=== PATIENT | male | born 1940 | race Caucasian/White ===

== ENCOUNTER 2023-06-30 06:23 | Day surgery (SDC) | payer MEDICARE, BC, SELFPAY ==
[2023-06-30] VITALS (26 sets, daily range): BP systolic 92–136; BP diastolic 64–94; PULSE 45–94; RESP 12–20; TEMP 35.8–36.5; O2SAT 97–100; BMI 30.7
[2023-06-30] MEDS: LACTATED RINGERS 1000 ML 1,000 ML 100 ML IV ×2 (06:35→09:11)
[2023-06-30] MEDS: ACETAMINOPHEN 500 MG TABLET 1000 MG PO ×3 (06:57→19:11)
[2023-06-30] MEDS: CELECOXIB 200 MG CAPSULE PO (06:57)
[2023-06-30] MEDS: SODIUM CHLORIDE 0.9 % (FLUSH) 10 ML SYRINGE IVF (06:58)
[2023-06-30] MEDS: OXYCODONE (CR) 10 MG TAB.ER.12H PO (06:58)
--- NOTE | 2023-06-30 07:22 | SUR.PREOP ---
TIME?OUT:?0725 PT/RN/MDA?VERIFICATION?OF?SURGICAL?SITE Left Knee,?PROCEDURE Adductor Canal Block,?AND?CONSENT OBTAINED?PRIOR?TO?INVASIVE?PROCEDURE.
[2023-06-30] MEDS: MIDAZOLAM HCL 1 MG/ML inj IVP (07:26)
[2023-06-30] MEDS: fentaNYL 100 MCG/2 ML inj IVP (07:26)
[2023-06-30] MEDS: CEFAZOLIN 2 GM INJ IVP (08:35)
[2023-06-30] MEDS: TRANEXAMIC ACID 100 MG/ML INJ 1000 MG IV (08:35)
--- NOTE | 2023-06-30 09:42 | CRLHL7_ITS ---
For Patients: As a result of the Cures Act, medical imaging exams and procedure reports are released immediately into your electronic medical record. You may view this report before your referring provider. If you have questions, please contact your health care provider. Indication: Postop TKA Technique: Two views left knee Findings/Impression: Hardware from a left total knee arthroplasty is in satisfactory position. Bone alignment is normal. No sign of acute fracture. Postop changes are within normal limits. Dictated by Evelio Menchaca MD @ 06/30/2023 11:11:01 AM (Electronically Signed)
--- NOTE | 2023-06-30 09:43 | P.ORPRC_ITS ---
Procedure Note Date of procedure: 06/30/23 Procedure: PREOPERATIVE DIAGNOSIS: Left knee osteoarthritis POSTOPERATIVE DIAGNOSIS: Left knee osteoarthritis NAME OF OPERATION: Left total knee arthroplasty SURGEON: Ventura Heller MD DRY HOUSE TENDER: Cheryle Barron PA-C ANESTHESIA: Spinal ESTIMATED BLOOD LOSS: 0 mL COMPLICATIONS: None SPECIMENS: None DRAINS: None PREOPERATIVE ANTIBIOTICS: Ancef 2 grams IMPLANTS: 1. J&J Attune # 10 posterior stabilized femur 2. # 10 fixed-bearing tibia 3. # 10 posterior stabilized, 5 mm fixed-bearing polyethylene 4. 41 patella INDICATIONS: The patient is a 82-year-old with a longstanding history of severe, unrelenting left knee pain secondary to end-stage (grade IV) left knee osteoarthritis. Despite appropriate nonoperative management, including activity modification, anti-inflammatories, cqxz-[id number]-bllyeqy pain medication, bracing, physical therapy, and injections they continue to have pain and disability. Operative intervention was offered. The risks, benefits and expected outcomes were discussed in detail. These included but were not limited to: Infection, bleeding, injury to blood vessel or nerve, venous thromboembolism. All questions were answered to their satisfaction. Use of an personalized living assistant was necessary throughout the case for patient positioning and safety, soft tissue retraction, and closure. PROCEDURE: Spinal anesthesia was administered. The patient was placed supine on the operating table. The personalized living assistant made sure the patient was positioned appropriately. The lower extremity was prepped and draped in the usual sterile fashion. The limb was exsanguinated with the Dani bandage. The pneumatic to urniquet was inflated to 300 mmHg. A standard anterior incision was made with the knee in flexion. Subcutaneous dissection was sharply taken through fascial layer #1. Full-thickness medial and lateral flaps were elevated. The personalized living assistant retracted the soft tissues and protected them throughout the case. A standard medial parapatellar approach was made. The patella was everted. The infrapatellar fat pad was preserved. The menisci and cruciate ligaments were sharply d?brided. Marginal osteophytes were d?brided with the rongeur. The drill was used to penetrate the femoral canal. The canal was aspirated and irrigated with pulse lavage. The intramedullary femoral guide was placed for a 5-degree valgus cut, removing 10 mm off the distal femur. The saw was used to make the cut. Whitesides line and the trans epicondylar axis were marked. The femoral sizing guide was pinned onto the distal femur. Three degrees of external rotation nicely parallels the transepicondylar axis. Pins were placed for posterior referencing. The four-in-one cutting guide was pinned onto the distal femur. The anterior, posterior, and chamfer cuts were made. The personalized living assistant protected the collateral ligaments. The box cutting guide was pinned. The box cuts were made. The boxed trial was placed and was an excellent fit. Drill holes for the lugs were made. Attention was then turned to the proximal tibia. The extramedullary tibial guide was placed for a neutral varus/valgus cut with 5 degrees of posterior slope, removing 2 mm based off the medial tibial surface. The personalized living assistant protected the collateral ligaments and the neurovascular bundle. The saw was used to make the cut. Trial components were placed. The knee was nicely balanced in both flexion and extension. The trial components were removed. The tray was placed in appropriate rotation, parallel to our tibial cutting pins. It was pinned by the personalized living assistant and the drill and the punch were used. The tray was removed. The punch was used again. We placed a bone plug in the femoral canal. Attention was then turned to the patella. [place] patellar thickness was 27 mm. The lobster claw resection guide was used with the 9.5 mm bryant. The saw was used to make the cut. Drill holes were made by the personalized living assistant. The trial was placed and was an excellent fit. Cancellous surfaces were irrigated with pulse lavage and thoroughly dried by the personalized living assistant. We cemented the tibial component, then the femoral component. We impacted the 5 mm polyethylene onto the tibial tray. The knee was brought into full extension. We then cemented the patellar component. Excessive cement was removed. The cement was allowed to harden. The knee was taken through a range of motion and was found to be nicely balanced in both flexion and extension. The patella tracks centrally. The personalized living assistant did a three minute dilute Betadine solution soak. The personalized living assistant irrigated the wound with 3 liters of normal saline via pulse lavage. The ass istant reapproximated the extensor mechanism with #1 Vicryl in an interrupted [id number] fashion. The personalized living assistant then ran the extensor mechanism with a #1 PDO Stratafix. The personalized living assistant closed the subcutaneous tissues with a 3-0 Stratafix and the skin with a running 3-0 Stratafix in a subcuticular fashion. Glue was used to seal the skin. The personalized living assistant placed a dry dressing, KEIRA stocking, and Polar Care. Sponge and needle counts were correct x2. The patient tolerated the procedure well. There were no apparent complications. They were carefully transferred to the hospital bed and taken to the postanesthesia care unit in satisfactory condition. PLAN: The patient will be mobilized with physical therapy. Aspirin will be used for DVT prophylaxis. They will be discharged to home once medically appropriate.
--- NOTE | 2023-06-30 10:38 | W.ANESCHARGE ---
Anesthesia Charges Start Date/Time Anesthesia Start Date: 06/30/23 Anesthesia Start Time: 08:14 Stop Date/Time Anesthesia Stop Date: 06/30/23 Anesthesia Stop Time: 10:39 Summary Extremes of Age - Over 70 or under 1: [employer]
--- NOTE | 2023-06-30 11:16 | SUR.PHASEI ---
patient met discharge criteria per anesthesia
--- NOTE | 2023-06-30 11:38 | W.ANESCHARGE ---
Anesthesia Charges Start Date/Time Anesthesia Start Date: 06/30/23 Anesthesia Start Time: 08:14 Stop Date/Time Anesthesia Stop Date: 06/30/23 Anesthesia Stop Time: 10:39 Summary Extremes of Age - Over 70 or under 1: MDA
--- NOTE | 2023-06-30 11:39 | W.PM.NB ---
Nerve Block Nerve Block Time Seen by Provider: 07:33 Date Seen: 06/30/23 Type of block requested by surgeon for post-operative analgesia: adductor canal Side: left Time out performed: Yes Verification of patient name: Yes Verification of date of : Yes Site marking: site marked Name of person performing procedure: Rigoberto Assistants, if any: Coty Continuous monitoring Was continuous monitoring of O2 sat, B/P, satellite project site monitor, recorded every 15 minutes?: Yes Procedure Checklist: sterile prep, needles and gloves Ultrasound guided. Images saved: Yes Medications given in 5ml increments after negative aspiration: Ropivicaine %: 0.5 mL: 20 Needle gauge: 20 Decadron (mg): 10 Precedex (mcg): 25 Patient tolerated procedure well: Yes Additional comments: Needle noted adjacent to nerve Block Charges Block Charge (with Pro Fee): Femoral Nerve Use of Ultrasound Machine for Block: Yes- US Guidance/pain block
--- NOTE | 2023-06-30 11:40 | W.PM.NB ---
Nerve Block Nerve Block Time Seen by Provider: 07:33 Date Seen: 06/30/23 Type of block requested by surgeon for post-operative analgesia: geniculars Side: left Time out performed: Yes Verification of patient name: Yes Verification of date of : Yes Site marking: site marked Name of person performing procedure: Rigoberto Assistants, if any: Coty Continuous monitoring Was continuous monitoring of O2 sat, B/P, compliance monitor, recorded every 15 minutes?: Yes Procedure Checklist: sterile prep, needles and gloves Medications given in 5ml increments after negative aspiration: Ropivicaine %: 0.5 mL: 9 Needle gauge: 25 Patient tolerated procedure well: Yes Block Charges Block Charge (with Pro Fee): Genicular Nerve Block Use of Ultrasound Machine for Block: No
--- NOTE | 2023-06-30 14:27 | P.IMCN_ITS ---
Date of Consult Patient: Other Consult date: 06/30/23 Requesting Physician: Orthopedics Primary Care Provider: Nasir Valentino PA-C Consult Narrative Reason for consult: Narrative: HOSPITALIST CONSULT Procedure: Left total knee arthroplasty SURGEON: Ventura Heller MD UPPER CUTTER OUT: Cheryle Barron PA-C ANESTHESIA: Spinal ESTIMATED BLOOD LOSS: 0 mL COMPLICATIONS: None SPECIMENS: None DRAINS: None The hospital medicine team was asked by the orthopedic surgery team to manage the patient's hx of BPH, advanced age, Raynaud's disease. There have been no perioperative complications. Updated and reviewed the active medical problems, past medical history, past surgical history, social history, allergies and medications in our electronic EMR. From his PCP: HISTORY OF PRESENT ILLNESS Crescencio presents today for preop history and physical prior to his upcoming left knee surgery. I did his preop about a month ago and everything was good to go but he developed an infection in his tooth. Since then he has had his tooth pulled and he feels great he is excited about getting his knee surgery done because his pain persists. He is able to walk two blocks without chest pain or shortness of breath but would be limited by knee pain. - No concerns on 06/30. Patient is chewing, eating and swallowing without difficulty. PHYSICAL EXAM: CODE STATUS: FULL CODE CONSTITUTIONAL: Conversive, good historian. A/O. Knows setting and context. VITAL SIGNS: 106/81. Pulse 63. Respiration 14. Afebrile. 99% on room air. HEENT: Normocephalic, atraumatic. PERRL, EOMI, conjunctivae pink, no scleral icterus. Ears and nose externally normal. Pharynx normal. NECK: No JVD. No carotid bruit, no thyromegaly, no adenopathy. CHEST: Clear to auscultation bilaterally HEART: S1 and S2 normal. ABDOMEN: Flat, soft, nontender. Normal bowel sounds. Moderately obese. EXTREMITIES: No edema. MUSCULOSKELETAL: Left knee has a postsurgical dressing. Continuous icing in place. No obvious footdrop. NEURO: Cranial nerves intact. Mentation normal. Normal affect. SKIN: No rashes, petechiae, concerning changes PSYCHIATRIC: Mentation normal. INVESTIGATIONS: EMR Reviewed; Pre-OP Reviewed DISPOSITION: DVT: Agree with Ortho team decision GI: PO intake PFSH PFSH Medical History (Updated 06/30/23 @ 15:10 by Malinda Bowling MD) BPH (benign prostatic hyperplasia) ?N40.0 - Benign prostatic hyperplasia without lower urinary tract symptoms (ICD-10) Raynauds disease ?I73.00 - Raynaud's syndrome without gangrene (ICD-10) Rosacea ?L71.9 - Rosacea, unspecified (ICD-10) Arthritis ?M19.90 - Unspecified osteoarthritis, unspecified site (ICD-10) Surgical History (Updated 06/30/23 @ 15:09 by Malinda Bowling MD) History of total knee arthroplasty ?Z96.659 - Presence of unspecified artificial knee joint (ICD-10) H/O vasectomy ?Z98.52 - Vasectomy status (ICD-10) History of tonsillectomy ?Z90.89 - Acquired absence of other organs (ICD-10) H/O endoscopic sinus surgery ?Z98.890 - Other specified postprocedural states (ICD-10) History of ethmoidectomy ?Z98.890 - Other specified postprocedural states (ICD-10) S/P right knee arthroscopy (~2001) ?Z98.890 - Other specified postprocedural states (ICD-10) 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) ?Z96.651 - Presence of right artificial knee joint (ICD-10) History of colon resection ?Z90.49 - Acquired absence of other specified parts of digestive tract (ICD- 10) Hx of appendectomy ?Z90.49 - Acquired absence of other specified parts of digestive tract (ICD- 10) Family History Mother Sepsis Social History (Reviewed 04/01/23 @ 08:29 by Gabriella Bess ~ [facility], [facility]) What is your current living situation?: I presently have a place to live Problems where you live: no known problems In the past 12 months, utilities in danger of being shut off: no In past 12 months, lack of transportation kept you from medical appts, meetings, work, or getting things needed for daily living: no In the past 12 mos, have been you worried that your food would run out before you had money to buy more?: never true In the past 12 mos, the food you bought just didn't last and you didn't have money to buy more?: never true Smoking Status: Former smoker Do you use any of these nicotine containing products: None Second hand tobacco smoke exposure: No How often do you have a drink containing alcohol: 4 or more times a week Alcohol type: hard liquor How many standard drinks containing alcohol do you have on a typical day: 1 or 2 How often do you have six or more drinks on one occasion: Never AUDIT-C Alcohol total score: 4 Non-prescribed substance use: denies use How often does anyone, including family, friends and others, physically hurt you : never How often does anyone, including family, friends and others, insult or talk down to you: never How often does anyone, including family, friends and others, threaten you with harm: never How often does anyone, including family, friends and others, scream or curse at you: never service: No Meds Home Medications and Allergies Home Medications Medication Instructions Recorded Confirmed Type nifedipine 60 mg tablet,extended 60 mg PO DAILY 04/01/23 06/30/23 History release tamsulosin 0.4 mg capsule 0.8 mg PO DAILY 04/01/23 06/30/23 History metronidazole 0.75 % lotion 1 applic topical DAILY PRN 06/30/23 06/30/23 History Allergies Allergy/AdvReac Type Severity Reaction Status Date / Time No Known Drug Allergies Allergy Verified 06/30/23 06:48 Exam Const: Vital Signs, click to edit/add: Vital Signs - 24 hr 06/30/23 07:10 06/30/23 07:25 06/30/23 07:30 Temperature 97.4 F L Pulse Rate 61 58 L 60 Respiratory Rate 16 16 16 Blood Pressure 123/85 134/79 111/78 Pulse Oximetry 100 100 100 Oxygen Delivery Me thod Room Air Nasal Cannula Nasal Cannula Oxygen Flow Rate 2 2 06/30/23 07:35 06/30/23 10:34 06/30/23 10:40 Temperature 97.2 F L 97.2 F L Pulse Rate 60 64 64 Respiratory Rate 16 12 13 Blood Pressure 113/76 92/64 103/69 Pulse Oximetry 100 97 98 Oxygen Delivery Me thod Nasal Cannula Room Air Room Air Oxygen Flow Rate 2 06/30/23 10:45 06/30/23 10:50 06/30/23 10:55 Temperature 97.2 F L 97.2 F L 97.2 F L Pulse Rate 63 64 61 Respiratory Rate 12 12 12 Blood Pressure 110/79 116/78 110/79 Pulse Oximetry 97 98 98 Oxygen Delivery Me thod Room Air Room Air Room Air Oxygen Flow Rate 06/30/23 11:00 06/30/23 11:05 Temperature 97.2 F L 97.3 F L Pulse Rate 58 L 63 Respiratory Rate 12 14 Blood Pressure 117/81 106/81 Pulse Oximetry 97 99 Oxygen Delivery Me thod Room Air Room Air Oxygen Flow Rate Assessment and Plan Assessment and plan (1) History of total knee arthroplasty: Problem comment: -, Dr. Rainey, 06/30/2023. No complications. - hospital medicine team is happy to follow the patient through to discharge. There have been no obvious perioperative questions concerns or complications. I agree with the VTE prophylaxis planned. Discharge tomorrow pending PT OT evaluations is likely. Status: Acute (2) Raynauds disease: Problem comment: -nifedipine 60 mg ER, takes in the winter months. - Patient prefers to stay off this medication in the perioperative period, I concur. Status: Acute (3) BPH (benign prostatic hyperplasia): Problem comment: - Flomax 0.8 mg Q 24 - Patient would like to wait until they get home to take this medication. I am fine with that As long as he is passing his urine acceptably. Status: Acute
[2023-06-30] MEDS: CEFAZOLIN 2 GM in 0.9 % SODIUM CHLORIDE Mini-bag 100 ML IVPB ×2 (15:05→22:27)
--- NOTE | 2023-06-30 18:31 | PC.NURSE ---
End of shift [id number] - Pt arrived from PACU at approximately 11:10. Pt alert, oriented, and cooperative. Dressing clean, dry, intact. Cryocuff on surgical site. Pt reported pain as 2/10 and reported tolerating pain. PRN pain medication options discussed, pt refused. Scheduled medication given per OCT. Pt tolerating RA, regular diet and oral fluids. Up to chair and bathroom with walker and standby assistance. Pt continent of bladder, void x 2 during shift. Pt appears to be resting comfortably at end of shift.
[2023-06-30] MEDS: ASPIRIN 81 MG TABLET EC PO (20:42)
[2023-06-30] MEDS: SODIUM CHLORIDE 0.9 % (FLUSH) 10 ML SYRINGE 5 ML IVF (20:43)
--- NOTE | 2023-06-30 22:44 | PC.NURSE ---
End of Shift: Patient pleasant and cooperative. Afebrile. Dressing to left knee C/D/I. CMS intact. Denies pain. Up to chair and bathroom with SBA, walker and gait belt. Tolerating regular diet with no nausea.
[2023-07-01 01:15] VITALS: BP 136/86; PULSE 75; RESP 16; TEMP 36.7; O2SAT 97
[2023-07-01] MEDS: ACETAMINOPHEN 500 MG TABLET 1000 MG PO ×2 (01:31→07:27)
[2023-07-01 06:38] LABS: Hematocrit 40.5 % (37.0-53.0); Hemoglobin* 13.8 gm/dL (13.5-17.5); Immature Granulocytes Abs Auto 0.02 K/uL (0.00-0.30); Immature Granulocytes Pct Auto 0.2 %; Lymphocytes Percent Auto 8.2 % (20-44); Mean Corpuscular HGB Conc 34 gm/dL (32-36); Mean Corpuscular Hemoglobin 32 pg (26-34); Mean Corpuscular Volume 94 fL (80-100); Monocytes Percent Auto 10.3 % (0.0-11.0); Neutrophils Percent Auto 81.3 % (42.0-72.0); Platelet Count* 162 K/uL (140-440); RDW Coefficient of Variation % 13.1 % (11.5-15.5); Red Blood Count 4.33 m/uL (4.30-5.90); White Blood Count* 10.12 K/uL (4.50-11.00)
[2023-07-01 06:40] LABS: Slide Review Reflex No
[2023-07-01 07:00] VITALS: BP 124/77; PULSE 68; RESP 16; TEMP 36.4; O2SAT 95
[2023-07-01 07:02] LABS: INR 1.04 (0.91-1.10); Prothrombin Time 14.2 Seconds
[2023-07-01 07:06] LABS: Potassium* 4.3 mmol/L (3.6-5.1); Sodium* 138 mmol/L (135-149)
[2023-07-01 07:09] LABS: Creatinine* 0.6 mg/dL (0.5-1.5); Estimated Glomerular Filt Rate 98 ml/min
[2023-07-01 07:10] LABS: Blood Urea Nitrogen* 20 mg/dL (7-30)
--- NOTE | 2023-07-01 07:54 | PC.NURSE ---
Pt alert and oriented x3. Afebrile. Pt states pain is 0/10 in left knee, pedal pulses are +3, and pt denies numbness and tingling. Pt left leg dressing is CDI. Pt is up SBA with walker and gait belt, tolerating a regular diet, and voiding. Pt slept throughout most of night.
--- NOTE | 2023-07-01 08:19 | PM.ORPN ---
Subjective Subjective Date Seen: 07/01/23 Interval history: Pain well controlled Ortho Exam Narrative Exam Narrative: Dressing clean and dry No calf tenderness CMS normal Const Vital Signs, click to edit/add: Vital Signs - 24 hr 06/30/23 10:34 06/30/23 10:40 06/30/23 10:45 Temperature 97.2 F L 97.2 F L 97.2 F L Pulse Rate 64 64 63 Pulse Rate [Pulse Oximeter] Respiratory Rate 12 13 12 Blood Pressure 92/64 103/69 110/79 Blood Pressure [Right Arm] Pulse Oximetry 97 98 97 Oxygen Delivery Method Room Air Room Air Room Air 06/30/23 10:50 06/30/23 10:55 06/30/23 11:00 Temperature 97.2 F L 97.2 F L 97.2 F L Pulse Rate 64 61 58 L Pulse Rate [Pulse Oximeter] Respiratory Rate 12 12 12 Blood Pressure 116/78 110/79 117/81 Blood Pressure [Right Arm] Pulse Oximetry 98 98 97 Oxygen Delivery Method Room Air Room Air Room Air 06/30/23 11:05 06/30/23 11:10 06/30/23 11:11 Temperature 97.3 F L 96.5 F L 96.5 F L Pulse Rate 63 Pulse Rate [Pulse Oximeter] 61 61 Respiratory Rate 14 16 16 Blood Pressure 106/81 Blood Pressure [Right Arm] 119/89 119/89 Pulse Oximetry 99 100 100 Oxygen Delivery Method Room Air Room Air Room Air 06/30/23 11:25 06/30/23 11:40 06/30/23 11:55 Temperature 96.6 F L Pulse Rate Pulse Rate [Pulse Oximeter] 48 L 58 L 45 L Respiratory Rate 16 16 Blood Pressure Blood Pressure [Right Arm] 134/91 H 130/84 136/76 Pulse Oximetry 99 97 99 Oxygen Delivery Method Room Air Room Air Room Air 06/30/23 12:10 06/30/23 12:40 06/30/23 13:10 Temperature 96.4 F L Pulse Rate Pulse Rate [Pulse Oximeter] 62 68 Respiratory Rate 16 Blood Pressure Blood Pressure [Right Arm] 136/84 134/85 118/94 H Pulse Oximetry 98 98 98 Oxygen Delivery Method Room Air Room Air Room Air 06/30/23 14:10 06/30/23 15:10 06/30/23 16:01 Temperature 96.7 F L 97.1 F L 96.5 F L Pulse Rate 61 Pulse Rate [Pulse Oximeter] 83 78 Respiratory Rate 20 16 16 Blood Pressure Blood Pressure [Right Arm] 132/83 129/82 119/89 Pulse Oximetry 97 99 Oxygen Delivery Method Room Air Room Air Room Air 06/30/23 16:10 06/30/23 17:10 06/30/23 19:00 Temperature 97.0 F L 97.7 F 97.4 F L Pulse Rate Pulse Rate [Pulse Oximeter] 69 79 82 Respiratory Rate 16 16 16 Blood Pressure Blood Pressure [Right Arm] 123/76 133/80 135/85 Pulse Oximetry 98 100 100 Oxygen Delivery Method Room Air Room Air Room Air 06/30/23 23:20 06/30/23 23:20 07/01/23 01:15 Temperature 97.5 F L 98.1 F Pulse Rate Pulse Rate [Pulse Oximeter] 94 94 75 Respiratory Rate 16 16 Blood Pressure Blood Pressure [Right Arm] 111/72 136/86 Pulse Oximetry 97 97 Oxygen Delivery Method Room Air Room Air Assessment and Plan Assessment and plan (1) History of total knee arthroplasty: Status: Acute Plan Doing well after left total knee arthroplasty Discharge home after PT.
[2023-07-01] MEDS: ASPIRIN 81 MG TABLET EC PO (09:17)
--- NOTE | 2023-07-01 11:57 | PC.NURSE ---
Discharge - Pt alert, oriented, cooperative. Up to chair and bathroom with standby assist and walker. Dressing CDI, cryocuff in place. Tolerating RA, regular diet and fluids. Pt denied pain. RN discussed pain medication options with pt, refused by pt. VSS, afebrile. IV removed, catheter intact. Discharge paperwork signed, education given to pt and spouse with verbalized understanding. Pt discharged to home with spouse at approximately 11:15.
== END 2023-07-01 11:15 | disposition home or self-care (01) ==
LOC: OR 06:24 → MEDSURG 07:42
PROVIDERS: PCP Physician Assistant; Visit Provider Orthopaedic Surgery
PROC: (CPT 27447; principal; 2023-06-30 08:00)
DX: M17.12 Unilateral primary osteoarthritis, left knee (principal); G89.18 Other acute postprocedural pain; N40.0 Benign prostatic hyperplasia without lower urinary tract symptoms; I73.00 Raynaud's syndrome without gangrene
CPT/HCPCS: 27447; 01402; 36415; 64447; 64454; 73560; 76942; 82565; 84132; 84295; 84520; 85025; 85610; 97110; 97116; 97161; 97165; 97530; 97535; 99100; A9270; C1776; J0690; J1100; J2250; J2704; J2795; J3010; J7120